=== PATIENT | male | born 2000 | race Caucasian/White ===

== ENCOUNTER 2019-03-01 14:14 | Emergency (ER) | payer OTHER ==
--- NOTE | 2019-03-01 14:17 | PDOC ---
Attending Attestation - Resident Resident Name: LaurieCatherine - ED Attending Attestation I have performed the following: I have examined & evaluated the patient, The case was reviewed & discussed with the resident, I agree w/resident's findings & plan, Exceptions are as noted - HPI HPI: Pt walked out prior to attending evaluation - Physicial Exam PE: Pt walked out prior to attending evaluation - Medical Decision Making Pt walked out prior to attending evaluation, refused to be seen here.
[2019-03-01 14:20] VITALS: BP 118/68; PULSE 68; TEMP 98.2; BMI 19.7
[2019-03-01] MEDS ORDERED: IBUPROFEN 600 MG TABLET (FP) PO ONE (14:22)
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
== END 2019-03-01 14:31 | disposition left against medical advice (07) ==
LOC: FER 14:14
DX: Z53.21 Procedure and treatment not carried out due to patient leaving prior to being seen by health care provider (principal)
CPT/HCPCS: 99281-25